=== PATIENT | male | born 1960 | race Caucasian/White ===

== ENCOUNTER 2023-12-10 06:16 | Day surgery (SDC) | payer OTHER, SELFPAY ==
[2023-12-10] VITALS (10 sets, daily range): BP systolic 118–150; BP diastolic 79–87; BMI 27.8
[2023-12-10] MEDS: CELEBREX 200 MG PO (09:01)
[2023-12-10] MEDS: TYLENOL 1000 MG PO (09:01)
[2023-12-10] MEDS: NORMOSOL-R 1000 IV (09:02)
[2023-12-10] MEDS: SUBLIMAZE 25 MCG IV ×4 (11:31→12:01)
== END 2023-12-10 14:08 | disposition home or self-care (01) ==
LOC: SDS 06:16
PROVIDERS: ATTENDING PHYSICIAN Specialist
PROC: 0LQL0ZZ Repair Right Upper Leg Tendon, Open Approach (ICD-10-PCS; 2023-12-10)
DX: S76.111A Strain of right quadriceps muscle, fascia and tendon, initial encounter (principal); X58.XXXA Exposure to other specified factors, initial encounter; Z88.8 Allergy status to other drugs, medicaments and biological substances; Z01.810 Encounter for preprocedural cardiovascular examination
CPT/HCPCS: 27385; 93005

== ENCOUNTER 2024-02-15 12:04 | Outpatient (RCR) | payer OTHER, SELFPAY | END 2024-02-15 23:59 | disposition home or self-care (01) | LOC: RPT 12:04 | PROVIDERS: ATTENDING PHYSICIAN Specialist; FAMILY PHYSICIAN Physician Assistant Medical | DX: S76.111D Strain of right quadriceps muscle, fascia and tendon, subsequent encounter (principal); X58.XXXD Exposure to other specified factors, subsequent encounter; Z47.89 Encounter for other orthopedic aftercare; Z73.6 Limitation of activities due to disability | CPT/HCPCS: 97010; 97110; 97116; 97163; 97530 ==

== ENCOUNTER 2024-03-15 11:07 | Outpatient (RCR) | payer OTHER, SELFPAY | END 2024-03-15 23:59 | disposition home or self-care (01) | LOC: RPT 11:07 | PROVIDERS: ATTENDING PHYSICIAN Specialist; FAMILY PHYSICIAN Physician Assistant Medical | DX: Z47.89 Encounter for other orthopedic aftercare (principal); S76.111D Strain of right quadriceps muscle, fascia and tendon, subsequent encounter; Z73.6 Limitation of activities due to disability; M62.81 Muscle weakness (generalized); R26.89 Other abnormalities of gait and mobility | CPT/HCPCS: 97110; 97116; 97530 ==